=== PATIENT | female | born 1965 | race African-American/Black ===

== ENCOUNTER 2017-06-20 20:04 | Emergency (ER) | payer MEDICARE, OTHER ==
[2017-06-20 20:17] VITALS: BP 211/104; PULSE 87; RESP 18; TEMP 98; O2SAT 100
[2017-06-20] MEDS ORDERED: cloNIDine HCL 0.2 MG TAB PO ONE (20:30)
--- NOTE | 2017-06-20 20:46 | PD ---
HPI Chief Complaint: Hypertension Time Seen by Provider: 20:23 Travel History International Travel<30 days: No Contact w/Intl Traveler<30days: No Traveled to known affect area: No History of Present Illness HPI 51-year-old female patient with history of psychiatric issues, here sent in from [facility] because of elevated blood pressure. She states that she feels fine, denies any chest pains, shortness of breath, or any other symptoms. She has not been told in the past that she has history of hypertension. However, she does not have a primary care doctor either. Modifying Factors: None Associated Signs & Symptoms: Elevated blood pressure Risk Factors: Psychiatric issues PFSH Past Medical History Diminished Hearing: No Psychiatric: Yes Seizures: Yes ?: Not Past Surgical History Section: Yes Social History Alcohol Use: Yes (USUALLY DAILY) Tobacco Use: Yes (7 CIGARETTES DAILY) Substance Use: No Allergies-Medications (Allergen,Severity, Reaction): Coded Allergies: No Known Allergies (Unverified , 06/20/17) Reported Meds & Prescriptions Reported Meds & Active Scripts Active No Active Prescriptions or Reported Medications Review of Systems Except as stated in HPI: all other systems reviewed are Neg Physical Exam Narrative GENERAL: Well-developed middle-age female patient currently in no acute distress , appears anxious. She is awake, alert. SKIN: Focused skin assessment warm/dry. HEAD: Atraumatic. Normocephalic. EYES: Pupils equal and round. No scleral icterus. No injection or drainage. ENT: No nasal bleeding or discharge. Mucous membranes pink and moist. NECK: Trachea midline. No JVD. CARDIOVASCULAR: Regular rate and rhythm. No murmur appreciated. RESPIRATORY: No accessory muscle use. Clear to auscultation. Breath sounds equal bilaterally. GASTROINTESTINAL: Abdomen soft, non-tender, nondistended. Hepatic and splenic margins not palpable. MUSCULOSKELETAL: No obvious deformities. No clubbing. No cyanosis. No edema. NEUROLOGICAL: Awake and alert. No obvious cranial nerve deficits. Motor grossly within normal limits. Normal speech. PSYCHIATRIC: Appropriate mood and affect; insight and judgment poor anxious. Data Data Last Documented VS Vital Signs Date Time Temp Pulse Resp B/P (MAP) Pulse Ox O2 Delivery O2 Flow Rate FiO2 06/20/17 20:48 94 16 144/74 (97) 100 Room Air 06/20/17 20:17 98.0 Orders Orders Electrocardiogram (06/20/17 20:23) Troponin I (06/20/17 20:23) Clonidine (Catapres) (06/20/17 20:30) Complete Blood Count With Diff (06/20/17 20:26) Comprehensive Metabolic Panel (06/20/17 20:26) Thyroid Stimulating Hormone (06/20/17 20:26) Psych Screen (06/20/17 20:26) Drug Screen, Random Urine (06/20/17 20:26) Labs Laboratory Tests Test 06/20/17 20:50 White Blood Count 4.5 TH/MM3 Red Blood Count 3.90 MIL/MM3 Hemoglobin 11.2 GM/DL Hematocrit 33.9 % Mean Corpuscular Volume 86.8 FL Mean Corpuscular Hemoglobin 28.6 PG Mean Corpuscular Hemoglobin Concent 33.0 % Red Cell Distribution Width 15.4 % Platelet Count 396 TH/MM3 Mean Platelet Volume 7.8 FL Neutrophils (%) (Auto) 48.4 % Lymphocytes (%) (Auto) 39.4 % Monocytes (%) (Auto) 6.4 % Eosinophils (%) (Auto) 5.3 % Basophils (%) (Auto) 0.5 % Neutrophils # (Auto) 2.2 TH/MM3 Lymphocytes # (Auto) 1.8 TH/MM3 Monocytes # (Auto) 0.3 TH/MM3 Eosinophils # (Auto) 0.2 TH/MM3 Basophils # (Auto) 0.0 TH/MM3 CBC Comment DIFF FINAL Differential Comment Blood Urea Nitrogen 5 MG/DL Creatinine 0.91 MG/DL Random Glucose 93 MG/DL Total Protein 8.1 GM/DL Albumin 3.6 GM/DL Calcium Level 9.2 MG/DL Alkaline Phosphatase 88 U/L Aspartate Amino Transf (AST/SGOT) 31 U/L Alanine Aminotransferase (ALT/SGPT) 24 U/L Total Bilirubin 0.3 MG/DL Sodium Level 140 MEQ/L Potassium Level 3.5 MEQ/L Chloride Level 104 MEQ/L Carbon Dioxide Level 27.0 MEQ/L Anion Gap 9 MEQ/L Estimat Glomerular Filtration Rate 79 ML/MIN Thyroid Stimulating Hormone 3rd Gen 1.430 uIU/ML Urine Opiates Screen NEG Urine Barbiturates Screen NEG Urine Amphetamines Screen NEG Urine Benzodiazepines Screen NEG Urine Cocaine Screen NEG Urine Cannabinoids Screen NEG MDM Medical Decision Making Medical Screen Exam Complete: Yes Emergency Medical Condition: Yes Medical Record Reviewed: Yes Interpretation(s) EKG shows normal sinus rhythm at a rate of 77 bpm with no signs of acute ST changes. Laboratory Tests Test 06/20/17 20:50 Red Blood Count 3.90 MIL/MM3 (4.00-5.30) Hemoglobin 11.2 GM/DL (11.6-15.3) Hematocrit 33.9 % (35.0-46.0) Eosinophils (%) (Auto) 5.3 % (0.0-4.0) Blood Urea Nitrogen 5 MG/DL (7-18) Estimat Glomerular Filtration Rate 79 ML/MIN (>89) Differential Diagnosis Anxiety/psychosis versus chronic hypertension versus hypertensive urgency Narrative Course Patient's blood pressure was elevated in the ER. However, she is fairly asymptomatic. She was given clonidine. Her lab work and EKG did not show any signs of acute processes. At this point, my plan would be to medically clear her for psychiatric evaluation. This hypertension is more likely related related to anxiety versus chronic hypertension. She will need further evaluation with primary care doctor. However, I do not see any signs of acute medical processes at this time. Of note, she has been Cantu acted and will need psychiatric clearance. Diagnosis Primary Impression: Hypertension Scripts No Active Prescriptions or Reported Meds Disposition: 65 DISC TO PSYCH CARE FACILITY Condition: Stable [place] Lo MD Jun 20, 2017 20:46
[2017-06-20 20:48] VITALS: BP 144/74; PULSE 94; RESP 16; O2SAT 100
[2017-06-20 21:26] LABS: AUTOMATED NEUTROPHIL # 2.2 TH/MM3 (1.8-7.7); BASOPHIL % 0.5 % (0.0-2.0); EOSINOPHIL # 0.2 TH/MM3 (0-0.4); EOSINOPHIL % 5.3 % (0.0-4.0); HEMATOCRIT 33.9 % (35.0-46.0); HEMOGLOBIN 11.2 GM/DL (11.6-15.3); LYMPH % 39.4 % (9.0-44.0); LYMPHOCYTE # 1.8 TH/MM3 (1.0-4.8); MEAN CELL VOLUME 86.8 FL (80.0-100.0); MEAN CORPUSCULAR HEMOGLOBIN 28.6 PG (27.0-34.0); MEAN PLATELET VOLUME 7.8 FL (7.0-11.0); MONO % 6.4 % (0.0-8.0); MONOCYTE # 0.3 TH/MM3 (0-0.9); NEUT % 48.4 % (16.0-70.0); PLATELET COUNT 396 TH/MM3 (150-450); RED CELL DISTRIBUTION WIDTH 15.4 % (11.6-17.2); WHITE BLOOD COUNT 4.5 TH/MM3 (4.0-11.0)
[2017-06-20 21:37] LABS: ALBUMIN 3.6 GM/DL (3.4-5.0); BLOOD UREA NITROGEN 5 MG/DL (7-18); CALCIUM 9.2 MG/DL (8.5-10.1); CHLORIDE 104 MEQ/L (98-107); CREATININE 0.91 MG/DL (0.50-1.00); GLOMERULAR FILTRATION RATE 79 ML/MIN (>89); GLUCOSE,RANDOM 93 MG/DL (74-106); SODIUM (NA) 140 MEQ/L (136-145)
[2017-06-20 21:38] LABS: ALT (GPT) 24 U/L (10-53); AST (GOT) 31 U/L (15-37)
[2017-06-20 21:48] LABS: ALKALINE PHOSPHATASE 88 U/L (45-117); TOTAL BILIRUBIN ADULT 0.3 MG/DL (0.2-1.0); TOTAL PROTEIN 8.1 GM/DL (6.4-8.2)
[2017-06-20 22:00] VITALS: BP 172/95; PULSE 70; RESP 16; O2SAT 95
[2017-06-21 00:04] VITALS: BP 132/72; PULSE 66; RESP 16; O2SAT 100
--- NOTE | 2017-06-21 10:56 | EKG ---
Date Performed: 06/20/2017 Time Performed: 20:54:47 PTAGE: 51 years EKG: Sinus rhythm NORMAL ECG NO PREVIOUS TRACING DOCTOR: Cheng Stephenson Interpretating Date/Time 06/21/2017 10:52:00
== END 2017-06-21 01:05 ==
LOC: NEPD 20:04
DX: I10 Essential (primary) hypertension (principal); Z72.0 Tobacco use
CPT/HCPCS: 80053; 80307; 84443; 84484; 85025; 93005; 99284